=== PATIENT | male | born 1950 | race Caucasian/White ===

== ENCOUNTER 2025-02-28 11:15 | Emergency (ER) | payer MEDICARE, OTHER, SELFPAY ==
[2025-02-28 11:21] VITALS: BP 149/66; PULSE 58; RESP 17; TEMP 36.8; O2SAT 96; BMI 29.4
--- NOTE | 2025-02-28 11:32 | DI.CT.S_ITS ---
PROCEDURE: CT HEAD/BRAIN WO CON INDICATIONS: fall hit head TECHNIQUE: Noncontrast 4.5 mm thick angled axial sections acquired from the foramen magnum to the vertex, with coronal and sagittal reformats. For radiation dose reduction, the following was used: automated exposure control, adjustment of mA and/or kV according to patient size. COMPARISON: None. FINDINGS: Image quality: Diagnostic. CSF spaces: Basal cisterns are patent. No extra-axial fluid collections. The ventricles are symmetric in size and shape. Brain: No intracranial bleeds or mass effect. 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 There is cerebral volume loss, with resultant ventricular and sulcal prominence. There are periventricular and deep white matter chronic small vessel ischemic changes. There is intracranial internal carotid artery atherosclerosis. Skull and face: Moderate to large right frontal scalp hematoma and swelling. Calvarium and visualized facial bones appear intact, without suspicious lesions. Sinuses: Visualized sinuses and mastoids are clear. IMPRESSION: 1. No acute intracranial bleed, midline shift or mass effect. 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 2. Right frontal scalp hematoma and swelling. No acute skull fracture. Dictated by: Ruben Chavarria M.D. on 02/28/2025 at 11:57 Approved by: Ruben Chavarria M.D. on 02/28/2025 at 11:58
--- NOTE | 2025-02-28 11:33 | DI.CT.S_ITS ---
PROCEDURE: CT CERVICAL SPINE WO CON INDICATIONS: fall TECHNIQUE: Noncontrast 3 mm thick sections acquired from the skull base to the T4 level. Sagittal and coronal reformats were then constructed. For radiation dose reduction, the following was used: automated exposure control, adjustment of mA and/or kV according to patient size. COMPARISON: None. FINDINGS: Image quality: Excellent. Bones: No fractures or dislocations. There is straightening of normal cervical lordosis. Loss of disc height, degenerative endplate changes and bilateral facet hypertrophic changes are noted throughout cervical spine. Visualized superior ribs are intact. Soft tissues: Prevertebral soft tissues are normal in thickness. No paravertebral hematomas. No apical pneumothoraces. IMPRESSION: 1. No displaced fracture or traumatic subluxation. 2. Multilevel spondylitic changes throughout cervical spine. Dictated by: Ruben Chavarria M.D. on 02/28/2025 at 11:58 Approved by: Ruben Chavarria M.D. on 02/28/2025 at 11:59
--- NOTE | 2025-02-28 11:43 | ED_ITS ---
<Statement entered by Jose R Reyes, DO - 02/28/25 17:44> Co-sign statement: I was available for consultation during this patient's emergency department visit. This chart is being signed by myself for administrative purposes only. I do not have direct contact with this patient during this visit. They were seen independently by the [facility]. HPI - Fall General Chief Complaint: Fall Stated Complaint: fell . Cut above right eyelid Time Seen by Provider: 02/28/25 11:19 Source: patient Mode of arrival: Family Vehicle History of Present Illness HPI Narrative: 74-year-old male presents to the ED status post a head and facial injury sustained last night. Patient is visiting from [place], staying with friends, accidentally got his foot tangled in the sheets, causing him to fall and hit his forehead against a dresser. No loss of consciousness. Patient is not on blood thinners. Patient takes a baby aspirin daily. Patient has a couple of scrapes, 1 on his right forehead and 1 on his upper eyelid. They are not bleeding. There is a hematoma on his right forehead. Patient is comfortable in the ED. Related Data Allergies Allergy/AdvReac Type Severity Reaction Status Date / Time Penicillins Allergy Verified 02/28/25 11:21 Review of Systems Constitutional Constitutional: Denies chills, Denies fatigue, Denies fever(s), Denies frequent falls, Denies lethargy and Denies weakness Eyes Eyes: Denies change in vision, Denies eye discharge, Denies irritation and Denies loss of vision ENT Ears, Nose, Mouth, and Throat: Denies change in voice, Denies dizziness, Denies neck pain, Denies sore throat and Denies throat swelling Cardiovascular Cardiovascular: Denies chest pain, Denies irregular heart rhythm, Denies lightheadedness, Denies palpitations, Denies dyspnea, Denies dyspnea on exertion and Denies orthopnea Respiratory Respiratory: Denies cough, Denies dyspnea, Denies dyspnea on exertion and Denies wheezing Gastrointestinal Gastrointestinal: Denies abdominal pain, Denies change in bowel habits, Denies diarrhea, Denies nausea and Denies vomiting Musculoskeletal Musculoskeletal: Denies neck pain and Denies numbness Integumentary/Breasts Skin/Breast: Denies pruritus, Denies erythema, Denies rash and Denies wounds Comments: abrasions to R eyelid, forehead, bump to right forehead Neurologic Neurologic: Denies behavioral changes, Denies confusion, Denies dizziness, Denies frequent falls, Denies loss of vision, Denies numbness and Denies weakness Psychiatric Psychiatric: Denies anxiety, Denies behavioral changes, Denies confusion, Denies depression, Denies homicidal ideation and Denies suicidal ideation Endocrine Endocrine: Denies fatigue, Denies flushing and Denies palpitations Hematologic/Lymphatic Hematologic/Lymphatic: Denies easy bruising Allergic/Immunologic Allergic/Immunologic: Denies urticaria, Denies throat swelling and Denies wheezing Patient History Smoking Status: Never smoker Alcohol type: wine Exam Narrative Exam Narrative: Const General:?cooperative, healthy appearing and comfortable [facility] Head:? There is a hematoma with bruising to the right forehead. There is an abrasion to the right forehead as well as to the upper eyelid, just below the brow. Ears:?hearing grossly normal bilaterally Nose:?external nose normal; no septal hematoma or signs of epistaxis Face and sinus:?normal facial exam and sinuses nontender Mouth:?oral mucosae normal Throat:?posterior oropharynx normal Eyes General:?appearance normal, both eyes and all related structures Neck Neck:?normal visual inspection and no lymphadenopathy noted Resp Effort & Inspection:?normal respiratory effort Auscultation:?clear to auscultation bilaterally Cardio Rate:?regular rate Rhythm:?regular rhythm Neuro General:?patient alert, patient awake and patient oriented x3 Initial Vital Signs Initial Vital Signs: Vital Signs Temperature 98.3 F 02/28/25 11:21 Pulse Rate 58 L 02/28/25 11:21 Respiratory Rate 17 02/28/25 11:21 Blood Pressure 149/66 H 02/28/25 11:21 Pulse Oximetry 96 02/28/25 11:21 Oxygen Delivery Method Room Air 02/28/25 11:21 Course Orders Ordered: ED Orders 02/28/25 11:32 CT head/brain wo con Stat 02/28/25 11:33 CT cervical spine wo con Stat 02/28/25 12:08 CT facial bones wo con Stat Vital Signs Vital signs: Vital Signs - 8 hr 02/28/25 11:21 02/28/25 13:21 Temperature 98.3 F 97.9 F Pulse Rate 58 L 54 L Respiratory Rate 17 18 Blood Pressure 149/66 H 136/67 Pulse Oximetry 96 96 Oxygen Delivery Method Room Air Room Air MDM - Fall MDM Narrative Medical decision making narrative: 74-year-old male presents to the ED status post a head and facial injury sustained last night. CT head, CT C-spine, CT face obtained. CT head and CT C- spine without acute findings. CT face shows right periorbital soft tissue swelling, without an associated facial bone fracture. Likely layering blood can be seen within the maxillary sinuses. The abrasions are shallow and not bleeding, require no further intervention at this time. Supportive care discussed. ED return precautions were discussed with patient. Patient verbalized understanding. Medical records reviewed: Yes Discharge Plan Departure Patient Disposition: Home Clinical Impression: Head injury Qualifiers: Encounter type: initial encounter Qualified Code(s): S09.90XA - Unspecified injury of head, initial encounter Instructions: How to Prevent Falls Activity Restrictions/Additional Instructions: You were evaluated in the emergency department for a head and face injury. The CT scans of your head, neck and face were normal. You have some scratches on your eyelid and forehead that do not need further intervention at this time. You may keep them clean and dry and apply Vaseline or Aquaphor to aid in healing. Please monitor for signs of infection such as worsening redness, pain, swelling, warmth, discharge. Return to the ED if you note any signs of in fection ot other worsening symptoms. Stand Alone Forms: Patient Portal/API
--- NOTE | 2025-02-28 12:08 | DI.CT.S_ITS ---
PROCEDURE: CT FACIAL BONES WO CON INDICATIONS: head injury TECHNIQUE: Noncontrast 2.5 mm thick axial images acquired from the mandible through the frontal sinuses, with coronal and sagittal reformatting. For radiation dose reduction, the following was used: automated exposure control, adjustment of mA and/or kV according to patient size. COMPARISON: [facility], CT, CT CERVICAL SPINE WO CON, 02/28/2025, 11:43. [facility], CT, CT HEAD/BRAIN WO CON, 02/28/2025, 11:43. FINDINGS: Image quality: Excellent. Bones and teeth: Orbital siegel are intact. Sinus siegel show no fracture or deformity. Nasal bones and septum are intact. Visualized portions of the mandible demonstrate no fractures or subluxation. Zygomatic arches are intact. Pterygoid plates are intact. Visualized portions of the skull base and auditory canals are intact. Sinuses: Likely layering blood can be seen within the maxillary sinuses. The sinuses otherwise appear clear. Soft tissues: Right periorbital soft tissue swelling is seen, with soft tissue hematoma. No soft tissue gas is seen. Vascular: Visualized vascular structures appear normal in the absence of contrast. Bony vascular foramina and canals are intact. IMPRESSION: Right periorbital soft tissue swelling is seen, without an associated facial bone fracture. Likely layering blood can be seen within the maxillary sinuses. Dictated by: Porter Howell M.D. on 02/28/2025 at 11:40 Approved by: Porter Howell M.D. on 02/28/2025 at 11:41
[2025-02-28 13:21] VITALS: BP 136/67; PULSE 54; RESP 18; TEMP 36.6; O2SAT 96
== END 2025-02-28 13:22 | disposition home or self-care (01) ==
PROVIDERS: Emergency Provider Student in an Organized Health Care Education/Training Program
DX: S00.81XA Abrasion of other part of head, initial encounter (principal); S00.211A Abrasion of right eyelid and periocular area, initial encounter; W06.XXXA Fall from bed, initial encounter
CPT/HCPCS: 70450; 70486; 72125; 99281; 99284